=== PATIENT | female | born 1955 | race Caucasian/White ===

== ENCOUNTER 2022-10-16 13:43 | Emergency (ER) | payer MEDICARE, MEDICAID ==
[~2022-10-16] VITALS: Ht 165.1 cm; Wt 47.5 kg
[2022-10-16 13:56] VITALS: BP 99/46
[2022-10-16] MEDS ORDERED: normal saline 1000ml 1,000 ML IV ONE (14:00)
[2022-10-16 14:24] LABS: BASOPHILS # (AUTO) 0.1 X10'3 (0-0.2); EOSINOPHILS # (AUTO) 0.3 X10'3 (0-0.9); HEMOGLOBIN 10.6 g/dl (12.0-16.0); LYMPHOCYTES # (AUTO) 2.5 X10'3 (1.1-4.8); MONOCYTES # (AUTO) 0.8 X10'3 (0-0.9); NEUTROPHILS # (AUTO) 6.2 X10'3 (1.8-7.7)
[2022-10-16 14:26] LABS: BASOPHILS % (AUTO) 1.3 % (0-1); EOSINOPHILS % (AUTO) 3.1 % (0-6); HEMATOCRIT 34.3 % (35.0-45.0); LYMPHOCYTES % (AUTO) 25.6 % (21-51); MEAN CORPUSCULAR HEMOGLOBIN 23.5 PG (27.0-31.0); MEAN CORPUSCULAR VOLUME 75.7 FL (78-98); MONOCYTES % (AUTO) 7.7 % (2-12); NEUTROPHILS % (AUTO) 62.3 % (42-75); PLATELET COUNT 729 X10'3 (140-440); RED BLOOD COUNT 4.54 X10'6 (4.20-5.60); RED CELL DISTRIBUTION WIDTH 18.2 % (11.5-14.5); WHITE BLOOD COUNT 9.9 X10'3 (4.5-11.0)
[2022-10-16 14:37] LABS: ALANINE AMINOTRANSFERASE 17 U/L (12-78); ALBUMIN/GLOBULIN RATIO 0.3 (1.1-1.5); ALKALINE PHOSPHATASE 214 IU/L (46-116); ANION GAP 6 (8-16); ASPARTATE AMINO TRANSFERASE 27 U/L (10-37); BLOOD UREA NITROGEN 25 MG/DL (7-18); BUN/CREATININE RATIO 31.6 (10.0-20.0); CALCIUM 8.9 MG/DL (8.5-10.1); CHLORIDE 96 MMOL/L (99-107); CREATININE 0.79 MG/DL (0.40-0.90); POTASSIUM 4.6 MMOL/L (3.5-5.1); SODIUM 132 MMOL/L (135-145); TOTAL CARBON DIOXIDE 30.3 MMOL/L (24-32); TOTAL PROTEIN 8.2 G/DL (6.4-8.2); eGFR 72 ML/MIN
[2022-10-16 14:41] LABS: GLUCOSE 241 MG/DL (70-104)
[2022-10-16 14:44] LABS: LIPASE 218 U/L (73-393); MAGNESIUM 1.7 MG/DL (1.5-2.4)
[2022-10-16 14:44] LABS: CLARITY,URINE CLOUDY (Clear); COLOR,URINE YELLOW (Yellow); GLUCOSE, URINE 250 mg/dl (Neg); KETONES,URINE NEGATIVE (Neg); LEUKOCYTE ESTERASE ,URINE LARGE (Neg); NITRITES, URINE NEGATIVE (Neg); OCCULT BLOOD,URINE TRACE-INTACT (Neg); PH,URINE 5.5 (4.8-8.0); PROTEIN,URINE NEGATIVE (Neg); UROBILINOGEN,URINE 0.2 E.U/dL (0.2-1.0)
[2022-10-16 14:48] LABS: UA COLLECTION TYPE FOLEY CATH
[2022-10-16 14:55] LABS: WBC CLUMPS,URINE FEW /HPF (NEGATIVE); WBC,URINE TNTC /HPF (0-4); YEAST MANY /HPF (NEGATIVE)
[2022-10-16 14:56] LABS: RBC,URINE 0-2 /HPF (0-2)
[2022-10-16 14:57] LABS: BACTERIA,URINE FEW /HPF (Neg); SQUAMOUS EPITHELIAL CELL,UR NONE SEEN /LPF (FEW)
[2022-10-16] MEDS ORDERED: CefTRIAXone/D5W-Rocephin 1gm 50 ML IV ONE (15:10)
--- NOTE | 2022-10-16 15:43 | NUR ---
Colostomy changed per DECLAN Pichardo request. Colostomy stoma site looks good, slight pink above the stoma, soft brown stool noted, no blood, no foul drainage noted at the site.
[2022-10-16] MEDS ORDERED: iohexol 300mg/ml 100ml inj. ONE (16:05)
[2022-10-16] MEDS ORDERED: HYDROcodone/acetaminophen 10/325mg tab PO ONE (16:05)
[2022-10-16] MEDS ORDERED: CEPH500C81 PO (16:56)
--- NOTE | 2022-10-16 17:29 | NUR ---
Per Francine NOGUEIRA, we can leave the IV on upon transfer to [facility]
== END 2022-10-16 17:43 ==
LOC: ER 13:44
DX: N39.0 Urinary tract infection, site not specified (principal); R91.1 Solitary pulmonary nodule; Z88.0 Allergy status to penicillin; Z88.5 Allergy status to narcotic agent; Z88.4 Allergy status to anesthetic agent; Z88.1 Allergy status to other antibiotic agents
CPT/HCPCS: 36415; 71045; 74177; 80053; 81001; 83605; 83690; 83735; 83880; 84145; 84484; 85025; 87040; 87088; 93005; 96361; 96365; 99285; J0696; J3490; J7030; Q9967; A4421